=== PATIENT | male | born 1950 | race Caucasian/White ===

== ENCOUNTER 2018-12-05 06:37 | Day surgery (SDC) | payer MEDICARE, OTHER ==
[2018-12-05] MEDS ORDERED: SOD CHLORIDE 0.9% 1,000 ML IV (07:00)
[2018-12-05] MEDS: MOXIFLOXACIN 0.5% 3 ML OPH OPER (07:27)
[2018-12-05] MEDS: CYCLOPENTOLATE/PHENYLEPH 2 ML OPH OPER (07:27)
[2018-12-05] MEDS: DICLOFENAC 0.1% 2.5 ML OPH OPER (07:27)
[2018-12-05] MEDS: TROPICAMIDE 1% 15 ML OPH OPER (07:28)
[2018-12-05 08:09] LABS: INR 0.95; PROTIME 12.8 Sec (11.9-14.9)
[2018-12-05 08:10] LABS: PARTIAL THROMBOPLASTIN TIME 33.5 Sec (23.0-35.0)
[2018-12-05 08:11] LABS: ALANINE AMINOTRANSFERASE 24 IU/L (13-69); ALBUMIN 4.2 g/dl (3.3-4.9); ALBUMIN/GLOBULIN RATIO 1.27; ALKALINE PHOSPHATASE 57 IU/L (42-121); ANION GAP 8 (5-13); ASPARTATE AMINO TRANSFERASE 23 IU/L (15-46); BILIRUBIN,INDIRECT 0.3 mg/dl (0-1.1); BILIRUBIN,TOTAL 0.3 mg/dl (0.2-1.3); CALCIUM 9.4 mg/dl (8.4-10.2); CARBON DIOXIDE 29 mmol/L (21-31); CHLORIDE 102 mmol/L (97-110); Estimated GFR > 60 mL/min (>60); GLUCOSE 118 mg/dl (70-220); SODIUM 139 mmol/L (135-144); TOTAL PROTEIN 7.5 g/dl (6.1-8.1)
[2018-12-05 08:19] LABS: BLOOD UREA NITROGEN 29 mg/dl (7-20)
[2018-12-05 08:22] LABS: POTASSIUM 5.3 mmol/L (3.5-5.1)
[2018-12-05] MEDS ORDERED: CEFAZOLIN 1 GM INJ (09:40)
[2018-12-05] MEDS: CARBACHOL 0.01% 1.5 ML OPH INJ (10:15)
[2018-12-05] MEDS: LIDOCAINE 4% (MPF) 5 ML INJ (10:15)
[2018-12-05] MEDS: DEXAMETHASONE 4 MG/ML 1 ML INJ (10:15)
[2018-12-05] MEDS: NA HYALURONATE/CHONDROITIN 0.5 ML SYG (10:16)
[2018-12-05] MEDS ORDERED: LIDOCAINE 4% CR (10:27)
[2018-12-05] MEDS ORDERED: PROPOFOL 20 ML (10:28)
[2018-12-05] MEDS ORDERED: LIDOCAINE 100 MG SYRINGE (10:28)
[2018-12-05] MEDS ORDERED: OXYCODONE/ACETAMINOPHEN (5/325) TAB (11:16)
[2018-12-05] MEDS: OXYCODONE/ACETAMINOPHEN (5/325) TAB PO (11:22)
== END 2018-12-05 12:21 | disposition home or self-care (01) ==
LOC: SDS 06:37
DX: H25.12 Age-related nuclear cataract, left eye (principal); I10 Essential (primary) hypertension; Z79.82 Long term (current) use of aspirin; E11.9 Type 2 diabetes mellitus without complications; Z79.84 Long term (current) use of oral hypoglycemic drugs; E78.5 Hyperlipidemia, unspecified; E03.9 Hypothyroidism, unspecified
CPT/HCPCS: 66984; 71045; 80053; 82962; 85610; 85730; 93005

== ENCOUNTER 2018-12-29 11:28 | Inpatient (IN) | payer MEDICARE, OTHER ==
[2018-12-29] MEDS: SOD CHLORIDE 0.9% 1,000 ML IV (12:40)
[2018-12-29 12:43] LABS: ADD MAN DIFF? NO
[2018-12-29 12:47] LABS: BASOPHILS % 0.3 % (0.0-2.0); EOSINOPHILS % 0.2 % (0.0-7.0); HEMATOCRIT 30.1 % (42.0-52.0); HEMOGLOBIN 9.8 g/dl (14.0-18.0); LYMPHOCYTES # 1.2 10^3/ul (0.8-2.9); LYMPHOCYTES % 9.8 % (15.0-51.0); MEAN CORPUSCULAR HGB CONC 32.6 g/dl (32.0-37.0); MEAN PLATELET VOLUME 10.1 fl (7.4-10.4); MONOCYTE # 0.7 10^3/ul (0.3-0.9); MONOCYTES % 5.7 % (0.0-11.0); NEUTROPHIL # 10.2 10^3/ul (1.6-7.5); NEUTROPHILS % 83.7 % (39.0-77.0); PLATELET COUNT 306 10^3/UL (140-415); RED BLOOD COUNT 3.27 10^6/ul (4.70-6.10)
[2018-12-29 12:47] LABS: WHITE BLOOD COUNT 12.2 10^3/ul (4.8-10.8)
[2018-12-29 13:02] LABS: ALANINE AMINOTRANSFERASE 16 IU/L (13-69); ALBUMIN 3.9 g/dl (3.3-4.9); ALBUMIN/GLOBULIN RATIO 1.11; ALKALINE PHOSPHATASE 66 IU/L (42-121); ANION GAP 10 (5-13); ASPARTATE AMINO TRANSFERASE 13 IU/L (15-46); BILIRUBIN,INDIRECT 0.6 mg/dl (0-1.1); BILIRUBIN,TOTAL 0.6 mg/dl (0.2-1.3); BLOOD UREA NITROGEN 22 mg/dl (7-20); CALCIUM 9.3 mg/dl (8.4-10.2); CARBON DIOXIDE 30 mmol/L (21-31); CHLORIDE 97 mmol/L (97-110); CREATINE KINASE 39 IU/L (23-200); CREATININE 0.95 mg/dl (0.61-1.24); Estimated GFR > 60 mL/min (>60); POTASSIUM 4.9 mmol/L (3.5-5.1); SODIUM 137 mmol/L (135-144); TOTAL PROTEIN 7.4 g/dl (6.1-8.1)
[2018-12-29 13:09] LABS: GLUCOSE 428 mg/dl (70-220)
[2018-12-29 13:14] LABS: B-TYPE NATRIURETIC PEPTIDE 1350 PG/ML (0-125); CK INDEX 1.6; CK-MB 0.62 ng/ml (0.0-2.4); TROPONIN-I < 0.012 ng/ml (0.000-0.120)
[2018-12-29 13:43] LABS: INR 1.05; PROTIME 13.8 Sec (11.9-14.9); PT RATIO 1.1
[2018-12-29 13:44] LABS: PARTIAL THROMBOPLASTIN TIME 34.9 Sec (23.0-35.0)
[2018-12-29] MEDS: INSULIN LISPRO 100 UNIT/ML VIAL SC ×2 (14:01→15:19)
[2018-12-29] MEDS ORDERED: ACETAMINOPHEN 325 MG TAB PO ×2 (16:30→18:00)
[2018-12-29] MEDS ORDERED: ONDANSETRON 4 MG INJ IV ×2 (16:30→18:00)
[2018-12-29] MEDS: APIXABAN 5 MG TABLET PO ×2 (16:36→21:09)
[2018-12-29] MEDS ORDERED: MAGNESIUM HYDROXIDE 30ML CUP PO (18:00)
[2018-12-29] MEDS ORDERED: LORAZEPAM 2 MG INJ IV (18:00)
[2018-12-29] MEDS ORDERED: DOCUSATE SODIUM 100 MG CAP PO (18:00)
[2018-12-29] MEDS ORDERED: NITROGLYCERIN (SL) 0.4 MG TAB SL (18:00)
[2018-12-29] MEDS ORDERED: ALBUTEROL/IPRATROPIUM (NEB) 3 ML AMP HHN (18:00)
[2018-12-29] MEDS ORDERED: hydrALAzine 20 MG INJ IV (18:00)
[2018-12-29] MEDS ORDERED: NACL 0.9% 3 ML SYG IV (18:00)
[2018-12-29] MEDS ORDERED: ALENDRONATE 70 MG TAB PO (18:00)
[2018-12-29] MEDS: morphine 2 MG INJ IV (18:29)
[2018-12-29] MEDS: SOD CHLORIDE 0.45% 1,000 ML IV (18:29)
[2018-12-29] MEDS ORDERED: DEXTROSE 50% 50 ML SYRINGE IV ×2 (18:30)
[2018-12-29] MEDS ORDERED: GLUCOSE GEL 15 GRAM TUBE PO ×2 (18:30)
[2018-12-29] MEDS ORDERED: GLUCOSE GEL 15 GRAM TUBE BUCCAL (18:30)
[2018-12-29] MEDS ORDERED: GLUCAGON 1 MG INJ IM (18:30)
[2018-12-29 19:35] LABS: INR 1.09; PROTIME 14.2 Sec (11.9-14.9); PT RATIO 1.1
[2018-12-29 19:36] LABS: PARTIAL THROMBOPLASTIN TIME 43.4 Sec (23.0-35.0)
[2018-12-29] MEDS: INSULIN ASPART [NOVOLOG] 3 ML PEN SC (21:00)
[2018-12-29] MEDS: RANITIDINE 150 MG TAB PO (21:09)
[2018-12-29] MEDS: FERROUS SULFATE (EC) 325 MG TAB PO (21:09)
[2018-12-29 22:06] LABS: ADD UMIC YES; UR ASCORBIC ACID NEGATIVE (NEGATIVE); UR BILIRUBIN (Dip) NEGATIVE (NEGATIVE); UR BLOOD (Dip) 1+ mg/dL (NEGATIVE); UR CLARITY CLEAR (CLEAR); UR COLOR YELLOW (YELLOW); UR GLUCOSE (Dip) 3+ mg/dL (NEGATIVE); UR KETONES (Dip) TRACE mg/dL (NEGATIVE); UR LEUKOCYTE ESTERASE (Dip) NEGATIVE Leu/ul (NEGATIVE); UR MUCUS FEW /HPF (NONE SEEN); UR NITRITE (Dip) NEGATIVE (NEGATIVE); UR RBC 3 /HPF (0-5); UR SPECIFIC GRAVITY (Dip) 1.021 (1.003-1.030); UR TOTAL PROTEIN (Dip) 2+ mg/dl (NEGATIVE); UR UROBILINOGEN (Dip) NEGATIVE (NEGATIVE); UR WBC 1 /HPF (0-5)
[2018-12-30] MEDS: INSULIN ASPART [NOVOLOG] 3 ML PEN SC ×6 (00:40→20:45)
[2018-12-30 05:28] LABS: ADD MAN DIFF? NO
[2018-12-30 05:30] LABS: WHITE BLOOD COUNT 9.6 10^3/ul (4.8-10.8)
[2018-12-30 05:30] LABS: BASOPHILS % 0.4 % (0.0-2.0); EOSINOPHILS # 0.1 10^3/ul (0.0-0.5); EOSINOPHILS % 1.1 % (0.0-7.0); HEMATOCRIT 26.2 % (42.0-52.0); HEMOGLOBIN 8.5 g/dl (14.0-18.0); LYMPHOCYTES # 1.8 10^3/ul (0.8-2.9); MEAN CORPUSCULAR HEMOGLOBIN 30.1 pg (29.0-33.0); MEAN CORPUSCULAR HGB CONC 32.4 g/dl (32.0-37.0); MEAN CORPUSCULAR VOLUME 92.9 fl (82.0-101.0); MONOCYTE # 0.6 10^3/ul (0.3-0.9); MONOCYTES % 6.7 % (0.0-11.0); NEUTROPHILS % 72.5 % (39.0-77.0); PLATELET COUNT 286 10^3/UL (140-415); RED BLOOD COUNT 2.82 10^6/ul (4.70-6.10)
[2018-12-30 06:04] LABS: ANION GAP 7 (5-13); BLOOD UREA NITROGEN 21 mg/dl (7-20); CALCIUM 8.7 mg/dl (8.4-10.2); CARBON DIOXIDE 28 mmol/L (21-31); CHLORIDE 102 mmol/L (97-110); CHOL/HDL RATIO 2.5 RATIO; CHOLESTEROL 124 mg/dl (100-200); CREATININE 0.67 mg/dl (0.61-1.24); Estimated GFR > 60 mL/min (>60); GLUCOSE 158 mg/dl (70-220); HDL CHOLESTEROL 49 mg/dl (30-78); LDL CHOLESTEROL,CALCULATED 62 mg/dl; POTASSIUM 4.2 mmol/L (3.5-5.1); SODIUM 137 mmol/L (135-144); TRIGLYCERIDES 63 mg/dl (0-149)
[2018-12-30 07:01] LABS: HEMOGLOBIN A1C 9.6 % (0-5.9)
[2018-12-30 07:14] LABS: THYROID STIMULATING HORMONE 0.285 MIU/L (0.465-4.680)
[2018-12-30] MEDS: SOD CHLORIDE 0.45% 1,000 ML IV ×2 (07:42→23:33)
[2018-12-30] MEDS: APIXABAN 5 MG TABLET PO ×2 (09:08→20:43)
[2018-12-30] MEDS: FERROUS SULFATE (EC) 325 MG TAB PO ×2 (09:08→20:43)
[2018-12-30] MEDS: METOPROLOL (XL) 25 MG TAB PO (09:08)
[2018-12-30] MEDS: THYROID 30 MG TAB PO (09:09)
[2018-12-30] MEDS: AMLODIPINE 10 MG TAB PO (09:09)
[2018-12-30] MEDS: morphine 2 MG INJ IV (09:19)
[2018-12-30] MEDS: RANITIDINE 150 MG TAB PO (20:44)
[2018-12-31] MEDS: ACCU-CHEK XX (02:00)
[2018-12-31] MEDS: morphine 2 MG INJ IV ×2 (02:11→12:46)
[2018-12-31 05:04] LABS: ADD MAN DIFF? NO
[2018-12-31 05:25] LABS: WHITE BLOOD COUNT 9.4 10^3/ul (4.8-10.8)
[2018-12-31 05:25] LABS: BASOPHILS % 0.3 % (0.0-2.0); EOSINOPHILS # 0.2 10^3/ul (0.0-0.5); EOSINOPHILS % 1.7 % (0.0-7.0); HEMATOCRIT 26.2 % (42.0-52.0); HEMOGLOBIN 8.6 g/dl (14.0-18.0); LYMPHOCYTES # 2.2 10^3/ul (0.8-2.9); LYMPHOCYTES % 22.8 % (15.0-51.0); MEAN CORPUSCULAR HEMOGLOBIN 30.5 pg (29.0-33.0); MEAN CORPUSCULAR HGB CONC 32.8 g/dl (32.0-37.0); MEAN CORPUSCULAR VOLUME 92.9 fl (82.0-101.0); MONOCYTE # 0.7 10^3/ul (0.3-0.9); MONOCYTES % 7.7 % (0.0-11.0); NEUTROPHIL # 6.3 10^3/ul (1.6-7.5); PLATELET COUNT 288 10^3/UL (140-415); RED BLOOD COUNT 2.82 10^6/ul (4.70-6.10); RED CELL DISTRIBUTION WIDTH 12.7 % (11.5-14.5)
[2018-12-31 05:39] LABS: ANION GAP 4 (5-13); BLOOD UREA NITROGEN 16 mg/dl (7-20); CALCIUM 8.8 mg/dl (8.4-10.2); CARBON DIOXIDE 31 mmol/L (21-31); CHLORIDE 100 mmol/L (97-110); CREATININE 0.67 mg/dl (0.61-1.24); Estimated GFR > 60 mL/min (>60); GLUCOSE 206 mg/dl (70-220); POTASSIUM 4.8 mmol/L (3.5-5.1); SODIUM 135 mmol/L (135-144)
[2018-12-31] MEDS: INSULIN ASPART [NOVOLOG] 3 ML PEN SC ×4 (08:29→21:12)
[2018-12-31] MEDS: THYROID 30 MG TAB PO (08:29)
[2018-12-31] MEDS: APIXABAN 5 MG TABLET PO ×2 (08:29→21:11)
[2018-12-31] MEDS: AMLODIPINE 10 MG TAB PO (08:30)
[2018-12-31] MEDS: METOPROLOL (XL) 25 MG TAB PO (08:30)
[2018-12-31] MEDS: FERROUS SULFATE (EC) 325 MG TAB PO ×2 (08:30→21:11)
[2018-12-31] MEDS: SOD CHLORIDE 0.45% 1,000 ML IV ×2 (09:49→13:01)
[2018-12-31] MEDS: RANITIDINE 150 MG TAB PO (21:11)
[2019-01-01] MEDS: ACCU-CHEK XX (01:47)
[2019-01-01] MEDS: SOD CHLORIDE 0.45% 1,000 ML IV (05:13)
[2019-01-01 05:56] LABS: ADD MAN DIFF? NO
[2019-01-01 06:00] LABS: BASOPHILS % 0.4 % (0.0-2.0); EOSINOPHILS # 0.2 10^3/ul (0.0-0.5); EOSINOPHILS % 1.9 % (0.0-7.0); HEMATOCRIT 26.4 % (42.0-52.0); HEMOGLOBIN 8.6 g/dl (14.0-18.0); LYMPHOCYTES # 1.6 10^3/ul (0.8-2.9); LYMPHOCYTES % 18.3 % (15.0-51.0); MEAN CORPUSCULAR HEMOGLOBIN 30.3 pg (29.0-33.0); MEAN CORPUSCULAR HGB CONC 32.6 g/dl (32.0-37.0); MEAN PLATELET VOLUME 10.2 fl (7.4-10.4); MONOCYTE # 0.7 10^3/ul (0.3-0.9); NEUTROPHILS % 70.8 % (39.0-77.0); PLATELET COUNT 300 10^3/UL (140-415); RED BLOOD COUNT 2.84 10^6/ul (4.70-6.10); RED CELL DISTRIBUTION WIDTH 12.5 % (11.5-14.5)
[2019-01-01 06:00] LABS: WHITE BLOOD COUNT 8.5 10^3/ul (4.8-10.8)
[2019-01-01 06:22] LABS: ANION GAP 10 (5-13); BLOOD UREA NITROGEN 16 mg/dl (7-20); CALCIUM 8.8 mg/dl (8.4-10.2); CARBON DIOXIDE 30 mmol/L (21-31); CHLORIDE 96 mmol/L (97-110); CREATININE 0.72 mg/dl (0.61-1.24); Estimated GFR > 60 mL/min (>60); GLUCOSE 226 mg/dl (70-220); POTASSIUM 4.8 mmol/L (3.5-5.1); SODIUM 136 mmol/L (135-144)
[2019-01-01] MEDS: INSULIN ASPART [NOVOLOG] 3 ML PEN SC ×2 (08:00→12:31)
[2019-01-01] MEDS: THYROID 30 MG TAB PO (08:05)
[2019-01-01] MEDS: FERROUS SULFATE (EC) 325 MG TAB PO (08:06)
[2019-01-01] MEDS: AMLODIPINE 10 MG TAB PO (08:06)
[2019-01-01] MEDS: METOPROLOL (XL) 25 MG TAB PO (08:06)
[2019-01-01] MEDS: APIXABAN 5 MG TABLET PO (08:07)
[2019-01-01] MEDS: HYDROCODONE/APAP (5/325) TAB PO (08:07)
[2019-01-05] MEDS ORDERED: ALENDRONATE 70 MG TAB PO (07:30)
== END 2019-01-01 15:55 | DRG 301 ==
LOC: E/R 11:28 → PP2 16:31
PROVIDERS: Hospitalist
DX: I82.402 Acute embolism and thrombosis of unspecified deep veins of left lower extremity (principal); E11.9 Type 2 diabetes mellitus without complications; I10 Essential (primary) hypertension; E78.00 Pure hypercholesterolemia, unspecified; Z79.84 Long term (current) use of oral hypoglycemic drugs; M79.605 Pain in left leg
CPT/HCPCS: 71045; 73630-LT; 80048; 80053; 80061; 81001; 82550; 82553; 82962; 83036; 83880; 84439; 84443; 84484; 85025; 85610; 85730; 93005; 93306; 93971; 96372; 97162; 99285-25

== ENCOUNTER 2019-06-27 16:04 | Inpatient (IN) | payer MEDICARE, OTHER ==
[2019-06-27] MEDS: SOD CHLORIDE 0.9% 1,000 ML IV ×2 (16:29→21:13)
[2019-06-27 16:30] LABS: ADD MAN DIFF? NO
[2019-06-27 16:37] LABS: BASOPHILS % 0.6 % (0.0-2.0); EOSINOPHILS # 0.1 10^3/ul (0.0-0.5); EOSINOPHILS % 1.5 % (0.0-7.0); HEMATOCRIT 38.1 % (42.0-52.0); HEMOGLOBIN 12.8 g/dl (14.0-18.0); LYMPHOCYTES % 32.1 % (15.0-51.0); MEAN CORPUSCULAR HEMOGLOBIN 30.8 pg (29.0-33.0); MEAN CORPUSCULAR HGB CONC 33.6 g/dl (32.0-37.0); MEAN CORPUSCULAR VOLUME 91.6 fl (82.0-101.0); MEAN PLATELET VOLUME 10.6 fl (7.4-10.4); MONOCYTE # 0.5 10^3/ul (0.3-0.9); MONOCYTES % 7.4 % (0.0-11.0); NEUTROPHIL # 3.6 10^3/ul (1.6-7.5); NEUTROPHILS % 57.9 % (39.0-77.0); PLATELET COUNT 258 10^3/UL (140-415); RED BLOOD COUNT 4.16 10^6/ul (4.70-6.10); RED CELL DISTRIBUTION WIDTH 12.8 % (11.5-14.5)
[2019-06-27 16:37] LABS: WHITE BLOOD COUNT 6.2 10^3/ul (4.8-10.8)
[2019-06-27 16:57] LABS: ANION GAP 10 (5-13); BLOOD UREA NITROGEN 33 mg/dl (7-20); CALCIUM 9.6 mg/dl (8.4-10.2); CARBON DIOXIDE 30 mmol/L (21-31); CHLORIDE 91 mmol/L (97-110); CREATININE 1.33 mg/dl (0.61-1.24); Estimated GFR 54 mL/min (>60); SODIUM 131 mmol/L (135-144)
[2019-06-27 17:04] LABS: GLUCOSE 539 mg/dl (70-220)
[2019-06-27] MEDS: SODIUM POLYSTYRENE 15 GM KIT (POWDER + SORBITOL) PO (17:48)
[2019-06-27] MEDS ORDERED: DEXTROSE 50% 50 ML SYRINGE IV (18:00)
[2019-06-27] MEDS: FUROSEMIDE 40 MG INJ IV (18:08)
[2019-06-27] MEDS: INSULIN REGULAR, HUMAN 100 UNIT/1 ML 3ML VIAL IVP (18:10)
[2019-06-27 18:25] LABS: TROPONIN-I 0.017 ng/ml (0.000-0.120)
[2019-06-27] MEDS ORDERED: ACETAMINOPHEN 325 MG TAB PO ×2 (19:00→21:00)
[2019-06-27] MEDS ORDERED: ONDANSETRON 4 MG INJ IV ×2 (19:00→21:00)
[2019-06-27] MEDS: ATORVASTATIN 20 MG TAB PO (21:00)
[2019-06-27] MEDS ORDERED: NACL 0.9% 3 ML SYG IV (21:00)
[2019-06-27] MEDS ORDERED: HYDROCODONE/APAP (5/325) TAB PO (21:00)
[2019-06-27] MEDS: HYDROCODONE/APAP (5/325) TAB PO (21:03)
[2019-06-27] MEDS: APIXABAN 5 MG TABLET PO (21:13)
[2019-06-27] MEDS: INSULIN ASPART [NOVOLOG] 3 ML PEN SC (21:31)
[2019-06-27] MEDS: INSULIN GLARGINE [LANTus] (100 UNITS/ML) SYG SC (21:31)
[2019-06-28] MEDS: ACCU-CHEK XX (02:20)
[2019-06-28] MEDS: HYDROCODONE/APAP (5/325) TAB PO (05:28)
[2019-06-28 06:19] LABS: ADD MAN DIFF? NO
[2019-06-28 06:21] LABS: BASOPHIL # 0.1 10^3/ul (0.0-0.1); BASOPHILS % 0.6 % (0.0-2.0); EOSINOPHILS # 0.2 10^3/ul (0.0-0.5); HEMATOCRIT 35.9 % (42.0-52.0); LYMPHOCYTES # 2.9 10^3/ul (0.8-2.9); LYMPHOCYTES % 37.1 % (15.0-51.0); MEAN CORPUSCULAR HEMOGLOBIN 30.6 pg (29.0-33.0); MEAN CORPUSCULAR HGB CONC 33.4 g/dl (32.0-37.0); MEAN CORPUSCULAR VOLUME 91.6 fl (82.0-101.0); MEAN PLATELET VOLUME 10.4 fl (7.4-10.4); MONOCYTE # 0.6 10^3/ul (0.3-0.9); MONOCYTES % 7.1 % (0.0-11.0); NEUTROPHILS % 51.8 % (39.0-77.0); PLATELET COUNT 249 10^3/UL (140-415); RED BLOOD COUNT 3.92 10^6/ul (4.70-6.10); RED CELL DISTRIBUTION WIDTH 12.9 % (11.5-14.5)
[2019-06-28 06:21] LABS: WHITE BLOOD COUNT 7.7 10^3/ul (4.8-10.8)
[2019-06-28 07:13] LABS: ALANINE AMINOTRANSFERASE 27 IU/L (13-69); ALBUMIN 3.7 g/dl (3.3-4.9); ALBUMIN/GLOBULIN RATIO 1.23; ALKALINE PHOSPHATASE 66 IU/L (42-121); ANION GAP 6 (5-13); ASPARTATE AMINO TRANSFERASE 28 IU/L (15-46); BILIRUBIN,INDIRECT 0.5 mg/dl (0-1.1); BILIRUBIN,TOTAL 0.5 mg/dl (0.2-1.3); BLOOD UREA NITROGEN 37 mg/dl (7-20); CALCIUM 9.1 mg/dl (8.4-10.2); CARBON DIOXIDE 33 mmol/L (21-31); CHLORIDE 99 mmol/L (97-110); CHOL/HDL RATIO 3.4 RATIO; CHOLESTEROL 167 mg/dl (100-200); CREATININE 1.14 mg/dl (0.61-1.24); Estimated GFR > 60 mL/min (>60); GLUCOSE 295 mg/dl (70-220); HDL CHOLESTEROL 48 mg/dl (30-78); LDL CHOLESTEROL,CALCULATED 83 mg/dl; MAGNESIUM 2.1 mg/dl (1.7-2.5); POTASSIUM 4.5 mmol/L (3.5-5.1); SODIUM 138 mmol/L (135-144); TOTAL PROTEIN 6.7 g/dl (6.1-8.1); TRIGLYCERIDES 178 mg/dl (0-149)
[2019-06-28] MEDS: ASPIRIN (EC) 81 MG TAB PO (08:23)
[2019-06-28] MEDS: INSULIN ASPART [NOVOLOG] 3 ML PEN SC ×7 (08:27→21:19)
[2019-06-28] MEDS: SOD CHLORIDE 0.9% 1,000 ML IV ×2 (08:49→17:10)
[2019-06-28] MEDS ORDERED: NON-FORMULARY/PATIENT OWN MED (Dapagliflozin Propanediol (Farxiga) 10 MG) PO (09:00)
[2019-06-28] MEDS: APIXABAN 5 MG TABLET PO ×2 (11:44→20:17)
[2019-06-28] MEDS: metFORMIN 500 MG TAB PO ×2 (11:44→18:37)
[2019-06-28] MEDS: AMLODIPINE 10 MG TAB PO (11:44)
[2019-06-28] MEDS: METOPROLOL (XL) 25 MG TAB PO (11:45)
[2019-06-28] MEDS ORDERED: GLUCAGON 1 MG INJ IM (16:30)
[2019-06-28] MEDS ORDERED: DEXTROSE 50% 50 ML SYRINGE IV ×2 (16:30)
[2019-06-28] MEDS ORDERED: GLUCOSE GEL 15 GRAM TUBE BUCCAL (16:30)
[2019-06-28] MEDS ORDERED: GLUCOSE GEL 15 GRAM TUBE PO ×2 (16:30)
[2019-06-28] MEDS: FARXIGA IS NON FORMULARY ITEM...PLEASE CONSIDER AN ORDER TO USE PATIENT'S OWN MED XX (17:00)
[2019-06-28] MEDS: ATORVASTATIN 20 MG TAB PO (20:17)
[2019-06-28] MEDS: INSULIN GLARGINE [LANTus] (100 UNITS/ML) SYG SC (23:25)
[2019-06-29] MEDS: ACCU-CHEK XX (01:36)
[2019-06-29] MEDS: SOD CHLORIDE 0.9% 1,000 ML IV ×2 (01:37→12:00)
[2019-06-29] MEDS: FARXIGA IS NON FORMULARY ITEM...PLEASE CONSIDER AN ORDER TO USE PATIENT'S OWN MED XX ×2 (08:00)
[2019-06-29] MEDS: INSULIN ASPART [NOVOLOG] 3 ML PEN SC ×4 (08:39→12:04)
[2019-06-29] MEDS: metFORMIN 500 MG TAB PO (08:42)
[2019-06-29] MEDS: ASPIRIN (EC) 81 MG TAB PO (08:42)
[2019-06-29] MEDS: AMLODIPINE 10 MG TAB PO (08:43)
[2019-06-29] MEDS: APIXABAN 5 MG TABLET PO (08:43)
[2019-06-29] MEDS: METOPROLOL (XL) 25 MG TAB PO (08:43)
[2019-06-29] MEDS: INSULIN GLARGINE [LANTus] (100 UNITS/ML) SYG SC (08:45)
[2019-06-29 08:53] LABS: ANION GAP 4 (5-13); BLOOD UREA NITROGEN 39 mg/dl (7-20); CALCIUM 9.2 mg/dl (8.4-10.2); CARBON DIOXIDE 32 mmol/L (21-31); CHLORIDE 101 mmol/L (97-110); CREATININE 0.97 mg/dl (0.61-1.24); Estimated GFR > 60 mL/min (>60); GLUCOSE 195 mg/dl (70-220); POTASSIUM 4.6 mmol/L (3.5-5.1); SODIUM 137 mmol/L (135-144)
== END 2019-06-29 15:59 | disposition home or self-care (01) | DRG 638 ==
LOC: E/R 16:04 → TEL 18:33
PROVIDERS: Internal Medicine
DX: E11.65 Type 2 diabetes mellitus with hyperglycemia (principal); R64 Cachexia; N17.9 Acute kidney failure, unspecified; E87.5 Hyperkalemia; I10 Essential (primary) hypertension; E78.5 Hyperlipidemia, unspecified; F41.9 Anxiety disorder, unspecified; F32.9 Major depressive disorder, single episode, unspecified; Z68.21 Body mass index [BMI] 21.0-21.9, adult; Z79.4 Long term (current) use of insulin; Z91.14 Patient's other noncompliance with medication regimen
CPT/HCPCS: 36415; 80048; 80053; 80061; 82962; 83036; 83735; 84484; 85025; 93005; 96374; 96375; 99285-25